=== PATIENT | male | born 1965 | race Caucasian/White ===

== ENCOUNTER → 2017-03-05 | Outpatient (CLI) | payer BC ==
[~2017-03-05] MED LIST: PROHANCE 279.3MG/ML 15ML VIAL (A9576) As Ordered ONE
--- NOTE | 2017-03-05 11:20 | REP ---
MR BRAIN WITHOUT AND WITH CONTRAST: HISTORY: Pituitary adenoma. CONTRAST: ProHance 9 mL. COMPARISON: 04/16/2007 and 01/15/2015. There are no areas of abnormal signal intensity in the brain parenchyma. There is no intraparenchymal hemorrhage, infarct or midline shift. The ventricular system is normal in appearance. There is no extracerebral collection. The patient is status post transsphenoidal__ resection of a pituitary adenoma. The sella turcica is enlarged. A small ill-defined area of decreased signal intensity on contrast enhanced T1-weighted images is present in the left side of the pituitary gland. There is minimal enlargement of the residual pituitary tissue in this area. There is no extension into the suprasellar cistern. There is retraction of the infundibulum to the right. The cavernous sinuses are normal in appearance. The optic chiasm is atrophic. Mucosal thickening is present in the maxillary sinuses. IMPRESSION: There is a small defined area of decreased signa intensity on contrast-enhanced T1 weighted images in the left side of the pituitary gland suspicious for recurrent tumor. Signed by Pato Stewart MD 03/05/2017 11:22 A
== END ==
LOC: M RAD 09:41
PROVIDERS: ATTEND Neurological Surgery
DX: D35.2 Benign neoplasm of pituitary gland (principal)
CPT/HCPCS: 70553; A9576

== ENCOUNTER 2018-01-09 11:06 | Day surgery (SDC) | payer OTHER ==
[~2018-01-09 11:06] MED LIST changes: +LIDOCAINE 2% INJ 100 MG/5 ML SDV (FOR ANES.) As Ordered; +MIDAZOLAM INJ 2 MG/2 ML VIAL (J2250) As Ordered; +ONDANSETRON 4MG/2ML VIAL (J2405) As Ordered; -PROHANCE 279.3MG/ML 15ML VIAL (A9576) As Ordered ONE; +PROPOFOL 200 MG/20 ML VIAL As Ordered; +ROCURONIUM BROMIDE 50 MG/5 ML VIAL As Ordered; +fentaNYL 100 MCG/2 ML INJECTION (J3010) As Ordered
[2018-01-09] MEDS ORDERED: ROPIvacaine 0.5% 30 ML INJECTION (J2795 PER 1MG) (11:07)
[2018-01-09] MEDS ORDERED: EPINEPHrine INJ 1 MG/ML 1ML AMP (11:07)
[2018-01-09] MEDS ORDERED: LIDOCAINE 1% MDV 20ML VIAL (11:07)
[2018-01-09] MEDS: LR 1,000 ML IV (11:29)
[2018-01-09] MEDS ORDERED: MIDAZOLAM INJ 2 MG/2 ML VIAL (J2250) As Ordered (11:52)
[2018-01-09] MEDS ORDERED: fentaNYL 100 MCG/2 ML INJECTION (J3010) As Ordered ×2 (11:52→15:01)
[2018-01-09] MEDS: MIDAZOLAM INJ 2 MG/2 ML VIAL (J2250) IV ×2 (12:14→12:16)
[2018-01-09] MEDS: fentaNYL 100 MCG/2 ML INJECTION (J3010) IV ×2 (12:14→12:20)
[2018-01-09] MEDS ORDERED: HYDROCORTISONE 100 MG/2 ML VIAL (J1720) As Ordered (12:50)
[2018-01-09] MEDS ORDERED: SUGAMMADEX SODIUM 500 MG/5 ML VIAL (BRIDION) As Ordered (13:30)
[2018-01-09] MEDS ORDERED: HYDROmorphone HCL 2 MG/ML 1ML VIAL (J1170) As Ordered (15:18)
[2018-01-09] MEDS: EPINEPHrine 1MG/ML INJ 30ML MD-VIAL As Ordered (15:32)
[2018-01-09] MEDS: LIDOCAINE 1% MDV 20ML VIAL As Ordered (16:18)
[2018-01-09] MEDS ORDERED: LR 1,000 ML IV (17:00)
[2018-01-09] MEDS ORDERED: ONDANSETRON 4MG/2ML VIAL (J2405) IV (17:00)
[2018-01-09] MEDS ORDERED: METOCLOPRAMIDE INJ 10MG/2ML VIAL (J2765) IV (17:00)
[2018-01-09] MEDS ORDERED: fentaNYL 100 MCG/2 ML INJECTION (J3010) IV (17:00)
[2018-01-09] MEDS: PERCOCET 5MG/325MG TAB PO ×2 (17:40→19:04)
[2018-01-09] MEDS ORDERED: PERCOCET 5MG/325MG TAB As Ordered (18:54)
== END 2018-01-09 20:15 | disposition home or self-care (01) ==
LOC: M SDC 11:06
DX: M75.111 Incomplete rotator cuff tear or rupture of right shoulder, not specified as traumatic (principal); M94.212 Chondromalacia, left shoulder; S43.492A Other sprain of left shoulder joint, initial encounter; E03.9 Hypothyroidism, unspecified; E27.40 Unspecified adrenocortical insufficiency; Z79.899 Other long term (current) drug therapy; Z92.3 Personal history of irradiation; Z79.52 Long term (current) use of systemic steroids; X58.XXXA Exposure to other specified factors, initial encounter; Y93.89 Activity, other specified; Y92.89 Other specified places as the place of occurrence of the external cause; Y99.8 Other external cause status
CPT/HCPCS: 29827

== ENCOUNTER → 2019-02-11 | Outpatient (CLI) | payer OTHER ==
[~2019-02-11] MED LIST changes: +ANDR1.62 TOP; +CORT5TAB2 PO; +LEXA1TAB2 PO; -LIDOCAINE 2% INJ 100 MG/5 ML SDV (FOR ANES.) As Ordered; -MIDAZOLAM INJ 2 MG/2 ML VIAL (J2250) As Ordered; -ONDANSETRON 4MG/2ML VIAL (J2405) As Ordered; -PROPOFOL 200 MG/20 ML VIAL As Ordered; -ROCURONIUM BROMIDE 50 MG/5 ML VIAL As Ordered; +SYNT175T2 PO; -fentaNYL 100 MCG/2 ML INJECTION (J3010) As Ordered
--- NOTE | 2019-02-12 10:16 | ECGEPIP ---
[facility] Test Date: 2019-02-11 Pat Name: DARA PRYOR Department: Room: - Gender: Male Logistic Specialist: DANIELITO : 1965 Requested By: IVAN Robles Order Number: [id number] Reading MD: Sathish Shrestha Measurements Intervals [place] Rate: 64 P: 38 [place]: 198 QRS: 69 QRSD: 85 T: 47 QT: 401 QTc: 416 Interpretive Statements SINUS RHYTHM Comparison tracing not on file Electronically Signed on 02-12-2019 10:16:23 EDT by Sathish Shrestha
== END ==
LOC: M EKG 11:47
PROVIDERS: ATTEND Anesthesiology
DX: Z01.818 Encounter for other preprocedural examination (principal)

== ENCOUNTER 2019-02-18 05:56 | Day surgery (SDC) | payer OTHER ==
[~2019-02-18] VITALS: Ht 177.8 cm; Wt 103.4 kg
[2019-02-18] MEDS ORDERED: LIDOCAINE 1% MDV 20ML VIAL SQ PRN (06:00)
[2019-02-18] MEDS ORDERED: ceFAZolin SOD 2 GM in IV 1 EA IV ONE (06:00)
[2019-02-18] MEDS ORDERED: LR 1,000 ML IV ONE (06:00)
[2019-02-18] MEDS ORDERED: EPINEPHrine INJ 1 MG/ML 1ML AMP As Ordered ONE (07:09)
[2019-02-18] MEDS ORDERED: LIDOCAINE 1% MDV 20ML VIAL As Ordered ONE (07:51)
[2019-02-18] MEDS ORDERED: MIDAZOLAM INJ 2 MG/2 ML VIAL (J2250) As Ordered ONE ×2 (08:04→10:49)
[2019-02-18] MEDS ORDERED: LIDOCAINE 2% INJ 100 MG/5 ML SDV (FOR ANES.) As Ordered ONE (08:04)
[2019-02-18] MEDS ORDERED: ROCURONIUM BROMIDE 50 MG/5 ML VIAL As Ordered ONE ×2 (08:04→09:19)
[2019-02-18] MEDS ORDERED: PROPOFOL 200 MG/20 ML VIAL As Ordered ONE (08:04)
[2019-02-18] MEDS ORDERED: fentaNYL 100 MCG/2 ML INJECTION (J3010) As Ordered ONE ×2 (08:04→10:48)
[2019-02-18] MEDS ORDERED: HYDROmorphone HCL 2 MG/ML 1ML VIAL (J1170) As Ordered ONE (08:05)
[2019-02-18] MEDS ORDERED: dexameTHASONE 4 MG/ML 1ML VIAL (J1100) As Ordered ONE (08:15)
[2019-02-18] MEDS ORDERED: ePHEDrine SULFATE 25 MG/5 ML(5MG/ML) SYRINGE As Ordered ONE (08:25)
[2019-02-18] MEDS ORDERED: DESFLURANE 240 ML INHALANT As Ordered ONE (08:26)
[2019-02-18] MEDS ORDERED: ONDANSETRON 4MG/2ML VIAL (J2405) As Ordered ONE (08:31)
[2019-02-18] MEDS ORDERED: SUGAMMADEX SODIUM 500 MG/5 ML VIAL (BRIDION) As Ordered ONE (08:32)
[2019-02-18] MEDS ORDERED: KETOROLAC 60 MG/2 ML VIAL (J1885) As Ordered ONE (08:32)
[2019-02-18] MEDS: fentaNYL 100 MCG/2 ML INJECTION (J3010) IV PRN ×4 (11:15→11:50)
[2019-02-18] MEDS ORDERED: ONDANSETRON 4MG/2ML VIAL (J2405) IV PRN (11:15)
[2019-02-18] MEDS ORDERED: LR 1,000 ML IV SCH ×2 (11:15→11:30)
[2019-02-18] MEDS: PERCOCET 5MG/325MG TAB PO PRN ×2 (12:00→13:13)
[2019-02-18 12:40] VITALS: BP 130/84
[2019-02-18] MEDS ORDERED: PERCOCET 5MG/325MG TAB As Ordered ONE (12:47)
--- NOTE | 2019-02-19 08:30 | RO ---
DATE OF PROCEDURE: 02/18/2019 PREOPERATIVE DIAGNOSIS: Re-tear left shoulder rotator cuff. POSTOPERATIVE DIAGNOSES: 1. Left shoulder rotator cuff repair. 2. 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 3. Left shoulder degenerative labral tear. PROCEDURE: 1. Left shoulder arthroscopic revision rotator cuff repair. 2. Left shoulder arthroscopic removal of hardware. 3. Left shoulder arthroscopic chondroplasty and labral debridement. SURGEON: Dr. Shayne Suárez. CONFIGURATION MANAGER: COLETTE Gonzalez ANESTHESIA: General with a postoperative nerve block. IV FLUIDS: Lactated Ringer's. ESTIMATE BLOOD LOSS: 5 mL IMPLANTS: Arthrex 4.75 mm Peak SwiveLock anchor times two, Arthrex 5.5 mm Peak SwiveLock anchor times two. CLOSURE: Nylon. DESCRIPTION OF PROCEDURE: The patient was identified in preoperative holding area. The left shoulder was marked by myself. To avoid a delay in the case, anesthesia recommended a postoperative nerve block. He was brought to the operating room, placed supine on a well-padded operating room (OR) table. General anesthesia induced. He received appropriate IV antibiotics within 1 hour of incision. Exam under anesthesia revealed 160 degrees of forward flexion, 70 degrees of external rotation and no increased anterior-posterior translation. The patient was placed into the right side down lateral decubitus position with an axillary roll and all bony prominences were well-padded. Bilateral Venodyne boots for deep venous thrombosis (DVT) prophylaxis. The left arm was placed into Arthrex STaR Sleeve lateral decubitus traction clement with 10 pounds of traction. Left shoulder was then prepped and draped in a normal sterile fashion with ChloraPrep. Prior to incision, a time-out was performed per hospital protocol. Andrew Cervantes was present for the entire procedure and participated in all essential portions of the procedure. This included patient positioning and draping, holding the arthroscope, retrieving sutures, manipulating the arm, using a mallet and awl to help create sockets for anchors and cutting suture arthroscopically, applying dressing and the sling. The patient had already been administered IV antibiotics and the left shoulder was insufflated with lactated Ringer's. Standard posterior viewing portal made with an 11-blade, 30 degrees arthroscope introduced into the joint. Diagnostic arthroscopy revealed primarily grade 1 chondromalacia in the humeral head and glenoid. There are two thin flaps of articular cartilage off the humeral head. There is degenerative free edge tearing of the anterior superior labrum. Posterior rotator cuff intact. Subscapularis was obscured with some scar tissue but appeared intact. There were three longitudinal splits in the supra and infraspinatus consistent with focal full-thickness re-tearing but no significant retraction. The patient had artery undergone a biceps tenodesis. An anterior working portal was established in the rotator interval and radiofrequency cautery used to clear out the rotator interval. Probing of the subscapularis reveal that there is was no re-tear. The posterior extent of the re-tear was marked percutaneously with a spinal needle. I performed a chondroplasty to the humeral head with a shaver and a labral debridement to the anterior and superior labrum with the shaver. The arthroscope was placed into the subacromial space where there was extensive bursitis and scarring. Lateral working portal was established and extensive bursectomy was performed with the shaver and cautery. Again noted was some loose FiberTape suture and three medial to lateral splits from where the suture had cut through the tendon. There was no significant retraction, though. The two lateral anchors were visualized and palpated with a switching stick and they were found to be loose so they were removed with a small frag screwdriver and pituitary rongeur. Arthroscopic scissors were used to release the FiberTape and [place] Tape. Radiofrequency cautery was used to release the supra and infraspinatus tendon that had been previously repaired corresponding to the area of re-tearing only and then the medial anchors were visualized. Medial anchors were removed with the small frag screwdriver. Ring curette used to clear the soft tissue off the tuberosity. I then placed two 5.5 mm Arthrex Peak SwiveLock anchors preloaded with tape through the prior medial row of sockets. The tapes were passed individually with the scorpion as were the eyelet sutures. Eyelet sutures were passed on each side both anterior and posterior in the longitudinal rent and then knots were tied arthroscopically with a knot pusher to close those down in a [id number] fashion. Those sutures were not cut. They were incorporated into the lateral row later. Similarly, the sutures from the posteromedial anchor were passed in a horizontal mattress fashion. The eyelet stitches passed on each side of longitudinal rent and those were tied with arthroscopic outside cutter to close the longitudinal split down. Next, corresponding sutures through each medial anchor were brought out through an anterolateral cannula and I was unable to use the prior lateral sockets due to loosening of the screws so a new socket was created just anterior to the previous one and then a 4.75 mm Peak SwiveLock anchor was docked, sutures tensioned, anchor malleted and then inserted by hand with excellent fixation. These steps were repeated with the posterior sutures in a crossing fashion and a new socket was created just posterior to the original and posterior anchor. Same steps were repeated. This also had excellent fixation. Sutures cut with arthroscopic outside cutter. This completed the revision double row arthroscopic rotator cuff repair. There are no dog ears. There is no lift off or buckling. Shoulder was irrigated and drained. Portals closed with nylon suture. Bulky sterile dressing applied. He was then carefully placed into his R-2 sling. At the time of dictation the patient is about to be extubated and transferred to the postanesthesia care unit (PACU).
== END 2019-02-18 13:25 | disposition home or self-care (01) ==
LOC: M SDC 05:56
PROVIDERS: ATTEND Orthopaedic Surgery
DX: M75.102 Unspecified rotator cuff tear or rupture of left shoulder, not specified as traumatic (principal); M94.212 Chondromalacia, left shoulder; Z79.899 Other long term (current) drug therapy
CPT/HCPCS: 29823; 29827; 64415; C1713; J0690; J1100; J1170; J1885; J2250; J2405; J3010

== ENCOUNTER → 2019-09-10 | Outpatient (CLI) | payer BC | LOC: M LABSMTC 10:51 | PROVIDERS: ATTEND Family Medicine | DX: Z11.59 Encounter for screening for other viral diseases (principal); Z20.828 Contact with and (suspected) exposure to other viral communicable diseases ==

== ENCOUNTER → 2020-09-07 | Outpatient (CLI) | payer BC ==
--- NOTE | 2020-09-08 17:17 | SLEEPCENT ---
DATE: 09/07/2020 ORDERED BY: Fozia Griffin Nocturnal polysomnography was performed for evaluation of sleep physiology in this patient with a history of excessive somnolence and nonrestorative sleep. There was 7 hours and 13 minutes of data reviewed. There was 355 minutes of sleep identified. Sleep latency was normal at 19 minutes. REM latency was normal at 82 minutes. Sleep architecture showed fragmentation. There were only two REM cycles appreciated. Overall sleep efficiency 82.9%. The electrocardiogram showed a sinus rhythm with an average heart rate of 60 beats per minute. Rate ranged 50-70. EEG showed normal waveforms for wake and sleep. There were 171 respiratory events identified of 10 seconds in duration or greater for an apnea-hypopnea index of 28.9. The events were obstructive, not exclusive to sleep stage nor to body posture. Arousals from respiratory events were seen 5.2 times per hour, and oxygen desaturations were seen into the 80s. There was some activity in the limb leads, but arousal index was only 1.7. Snoring was noted throughout the test. IMPRESSION: Obstructive sleep apnea syndrome (G47.33). Apnea-hypopnea index 28.9. RECOMMENDATION: The patient should be encouraged to return to the sleep disorder center for pressure therapy. In the interim, alcohol and sedative avoidance should be practiced and caution exercised during the operation of motor vehicles.
== END ==
LOC: M SLEEP 20:00
PROVIDERS: ATTEND Nurse Practitioner Family
DX: R06.83 Snoring (principal)

== ENCOUNTER → 2020-10-12 | Outpatient (CLI) | payer BC ==
--- NOTE | 2020-10-13 13:55 | SLEEPCENT ---
NOCTURNAL POLYSOMNOGRAPHY CPAP TITRATION DATE: 10/12/2020 ORDERED BY: MARSHALL Galarza Nocturnal polysomnography was performed for the titration of pressure therapy in this patient with obstructive sleep apnea syndrome with apnea-hypopnea index of 28.9. For testing a ResMed AirFit full face mask of medium size was used, 4 cm of water pressure were applied to the circuit, and the lights were extinguished. 6 hours and 43 minutes of data were reviewed. There were 349.5 minutes of sleep identified. Sleep latency was normal at 16.5 minutes. REM latency was mildly prolonged at 157.5 minutes. Sleep architecture improved late in the study and there were three REM cycles noted. Overall sleep efficiency was 88.3%. The electrocardiogram showed a sinus rhythm with an average heart rate of 68 beats per minute. EEG showed normal waveforms for wake and sleep. Respiratory events were best palliated with CPAP at a pressure of 10. Some limb activity was noted in the EMG leads and on this occasion, limb movement arousal index was 3.6. IMPRESSION: Obstructive sleep apnea syndrome (G47.33). RECOMMENDATION: Nightly use of pressure therapy 10 cm of water.
== END ==
LOC: M SLEEP 20:00
PROVIDERS: ATTEND Nurse Practitioner Family
DX: G47.33 Obstructive sleep apnea (adult) (pediatric) (principal)

== ENCOUNTER 2023-03-21 16:45 | Emergency (ER) | payer BC, MEDICARE, OTHER ==
[~2023-03-21] VITALS: Ht 170.2 cm; Wt 109.3 kg
[2023-03-21 19:39] VITALS: BP 145/78; TEMP 98; O2SAT 98
[2023-03-21] MEDS ORDERED: CIPRODEX OTIC SUSP 7.5ML AS ONE (21:05)
[2023-03-21] MEDS ORDERED: CIPR7.5D2 OT (21:08)
[2023-03-21] MEDS ORDERED: BOOSTRIX VACCINE (TETANUS/DIPHTH/ACEL. PERTUSSIS) 0.5ML SYR IM ONE (21:10)
== END 2023-03-21 21:24 | disposition home or self-care (01) ==
LOC: M ED 16:45
DX: T16.2XXA Foreign body in left ear, initial encounter (principal); S09.22XA Traumatic rupture of left ear drum, initial encounter; E03.9 Hypothyroidism, unspecified; Z79.2 Long term (current) use of antibiotics; Z79.890 Hormone replacement therapy; Z79.899 Other long term (current) drug therapy

== ENCOUNTER 2023-03-22 13:01 | Day surgery (SDC) | payer MEDICARE, OTHER ==
[~2023-03-22] VITALS: Ht 177.8 cm; Wt 109.7 kg
[~2023-03-22 13:01] MED LIST changes: +CIPR7.5D2 OT
[2023-03-22] MEDS ORDERED: OXYMETAZOLINE 0.05% NASAL SPRAY (AFRIN) As Ordered ONE (14:58)
[2023-03-22] MEDS ORDERED: CIPRODEX OTIC SUSP 7.5ML As Ordered ONE (14:58)
[2023-03-22] MEDS ORDERED: fentaNYL 100 MCG/2 ML INJECTION As Ordered ONE (15:03)
[2023-03-22] MEDS ORDERED: METOCLOPRAMIDE INJ 10MG/2ML VIAL As Ordered ONE (15:03)
[2023-03-22] MEDS ORDERED: MIDAZOLAM INJ 2MG/2ML VIAL As Ordered ONE (15:03)
[2023-03-22] MEDS ORDERED: LIDOCAINE 2% 100MG/5ML SDV (FOR ANES.) As Ordered ONE (15:03)
[2023-03-22] MEDS ORDERED: ONDANSETRON 4MG 2ML VIAL As Ordered ONE (15:03)
[2023-03-22] MEDS ORDERED: propofoL 200 MG/20 ML VIAL As Ordered ONE (15:03)
[2023-03-22] MEDS ORDERED: ACETAMINOPHEN 1000MG 100ML IV BAG As Ordered ONE (15:17)
[2023-03-22] MEDS ORDERED: LR 1,000 ML IV SCH (15:40)
[2023-03-22] MEDS ORDERED: oxyCODONE 5MG TAB PO PRN (15:40)
[2023-03-22] MEDS ORDERED: ONDANSETRON 4MG 2ML VIAL IV PRN (15:40)
[2023-03-22] MEDS ORDERED: fentaNYL 100 MCG/2 ML INJECTION IV PRN (15:40)
[2023-03-22] MEDS ORDERED: MORPHINE 2 MG/ML 1ML VIAL IV PRN (15:40)
[2023-03-22 16:39] VITALS: BP 117/69; TEMP 97.5; O2SAT 98
== END 2023-03-22 16:55 | disposition home or self-care (01) ==
LOC: M SDC 13:01
PROVIDERS: ATTEND Otolaryngology
DX: T16.2XXA Foreign body in left ear, initial encounter (principal); H72.92 Unspecified perforation of tympanic membrane, left ear; E03.9 Hypothyroidism, unspecified; G47.30 Sleep apnea, unspecified; W44.F9XA Other object of natural or organic material, entering into or through a natural orifice, initial encounter; Z79.890 Hormone replacement therapy; Z79.899 Other long term (current) drug therapy; Y93.9 Activity, unspecified; Y92.9 Unspecified place or not applicable; Y99.9 Unspecified external cause status
CPT/HCPCS: 69205; 88300; J0131; J1100; J2250; J2405; J2765; J3010

== ENCOUNTER → 2023-12-10 | Outpatient (REF) | payer MEDICARE, OTHER ==
[2023-12-10 18:59] LABS: APPEARANCE, URINE CLEAR (CLEAR); BACTERIA, URINE AUTO NEGATIVE (NEGATIVE); BILIRUBIN, URINE AUTO NEGATIVE (NEGATIVE); BLOOD, URINE BLOOD 1+ (NEGATIVE); COLOR, URINE YELLOW (YELLOW); GLUCOSE, URINE (UA) AUTO NEGATIVE (NEGATIVE); KETONE, URINE AUTO NEGATIVE (NEGATIVE); LEUKOCYTE ESTERASE, URINE AUTO NEGATIVE (NEGATIVE); NITRITE, URINE AUTO NEGATIVE (NEGATIVE); PROTEIN, URINE AUTO NEGATIVE (NEGATIVE); RBC, URINE AUTO 2 /HPF (0-3); SPECIFIC GRAVITY URINE AUTO 1.008 (1.002-1.035); SQUAMOUS EPITHELIAL CELL UR AU 0 /HPF (0-6); UROBILINOGEN, URINE AUTO 0.2 mg/dL (0.0-2.0); WBC, URINE AUTO 0 /HPF (0-3)
== END ==
LOC: M SMT 17:38
PROVIDERS: ATTEND Physician Assistant
DX: R31.21 Asymptomatic microscopic hematuria (principal)